=== PATIENT | female | born 1975 | race Caucasian/White ===

== ENCOUNTER 2017-11-06 17:36 | Emergency (ER) | payer MEDICAID ==
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
[2017-11-06] MEDS ORDERED: Acetaminophen/oxyCODONE 325-5 MG Tab PO ONE (18:10)
[2017-11-06] MEDS ORDERED: Ibuprofen 600 MG Tab PO ONE (18:11)
[2017-11-06] MEDS ORDERED: Ondansetron 4 MG/2 ML SDV IVPUSH ONE (18:15)
[2017-11-06] MEDS ORDERED: Ondansetron 4 MG Tab.DIS PO ONE (18:18)
--- NOTE | 2017-11-06 19:31 | CT ---
CT cervical spine Technique: Multiple axial sections were obtained from above C1 inferiorly to the top of T2. Reconstructed sagittal and coronal images were reviewed. Findings: Posterior skull base appears intact. Minimal disc space narrowing is noted at C4-C5 and C5-C6. Slight posterolateral spurring is noted at C4-C5 and C5-C6. Vertebral bodies and posterior arches are intact. No bony central or bony neural foraminal stenosis is seen. Minimal spurring is noted off the apophyseal joint on the left side at C2-C3. Slightly abnormal cervical curvature is seen most likely positional. Minimal spurring noted within the uncovertebral joints at C4-C5 and C5-C6. Impression: 1. Mild degenerative change. 2. No acute abnormality is identified on CT study of the cervical spine. Diagnostic code #2
--- NOTE | 2017-11-06 19:33 | CT ---
Head CT Technique: Multiple axial sections through the brain were obtained. Intravenous contrast was not utilized. Comparison: No previous intracranial imaging. Findings: Ventricles along with basal cisterns and sulci over convexities are within normal limits for the patient's age. No abnormal parenchymal densities are seen. No evidence of intracranial hemorrhage. No midline shift or mass effect is seen. Bone window settings were reviewed which shows the visualized sinuses to appear clear. No acute calvarial abnormality is seen. Impression: 1. No acute intracranial abnormality is seen. Diagnostic code #1
--- NOTE | 2017-11-06 19:34 | CT ---
CT thoracic spine Technique: Multiple axial sections were obtained through the thoracic spine. Reconstructed coronal and sagittal images were reviewed. Findings: Vertebral body heights and disc spaces are maintained. No bony central or bony neural foraminal stenosis is seen. No fracture is seen. No traumatic disc herniation is seen. Impression: 1. No abnormality is seen on CT study of the thoracic spine. Diagnostic code #1
--- NOTE | 2017-11-06 19:35 | CT ---
CT lumbar spine Technique: Multiple axial sections were obtained through the lumbar spine. Reconstructed sagittal and coronal images were reviewed. Findings: Vertebral bodies and posterior arches are intact. No fracture is seen. Posterior disks are preserved no traumatic disc herniation. No central canal stenosis or neural foraminal stenosis is seen. No abnormal subluxation is seen. Impression: 1. No abnormality is identified on CT study of the lumbar spine. Diagnostic code #1
== END 2017-11-06 20:04 | disposition home or self-care (01) ==
LOC: JD.ED 17:36
DX: S09.90XA Unspecified injury of head, initial encounter (principal); S13.9XXA Sprain of joints and ligaments of unspecified parts of neck, initial encounter; S30.0XXA Contusion of lower back and pelvis, initial encounter; S20.229A Contusion of unspecified back wall of thorax, initial encounter; F17.210 Nicotine dependence, cigarettes, uncomplicated; Z79.899 Other long term (current) drug therapy; W00.9XXA Unspecified fall due to ice and snow, initial encounter
CPT/HCPCS: 70450; 72125; 72128; 72131; 99284; A9270

== ENCOUNTER 2021-07-20 16:19 | Emergency (ER) | payer MEDICAID ==
[2021-07-20 17:10] VITALS: BP 132/94; PULSE 119
--- NOTE | 2021-07-20 17:48 | EDM.PDOC ---
ED HPI GENERAL MEDICAL PROBLEM - General Chief Complaint: Respiratory Problem Stated Complaint: COUGH Time Seen by Provider: 07/20/21 17:12 Source of Information: Reports: Patient, RN Notes Reviewed History Limitations: Reports: No Limitations - History of Present Illness INITIAL COMMENTS - FREE TEXT/NARRATIVE: Patient is a 46-year-old female presenting to the emergency department with complaints of cough which she reports has been present for the last few days. She does have a history of COPD for which she uses albuterol inhaler. She was seen at the [place] [facility] and started on Tessalon Perles, prednisone, and azithromycin. Denies having Covid test or chest x-ray completed. She did have Covid back in February but she is unvaccinated. Denies any fever, nausea, v omiting, diarrhea, or body aches. She is here primarily because the Tessalon Perles is not working for her cough and she would like a cough syrup. - Related Data Allergies Allergy/AdvReac Type Severity Reaction Status Date / Time No Known Allergies Allergy Verified 07/20/21 17:10 Home Meds: Home Meds Albuterol Sulfate [Proventil Hfa] 6.7 gm IH Q4H PRN 07/20/21 [History] Codeine/Promethazine [Phenergan with Codeine] 5 ml PO Q4HR PRN #100 ml 07/20/21 [Rx] Past Medical History Respiratory History: Reports: COPD Gastrointestinal History: Reports: Hepatitis Musculoskeletal History: Reports: Other (See Below) Other Musculoskeletal History: compound fracture right arm Neurological History: Reports: Migraines, Other (See Below) - Infectious Disease History Infectious Disease History: Reports: Hepatitis B, Hepatitis C - Past Surgical History GI Surgical History: Reports: Hernia Repair/Other Female Surgical History: Reports: Section, Tubal Ligation Social & Family History - Tobacco Use Tobacco Use Status *Q: Current Every Day Tobacco User Years of Tobacco use: 33 Packs/Tins Daily: 0.5 - Caffeine Use Caffeine Use: Reports: Soda - Recreational Drug Use Recreational Drug Use: No - Living Situation & Occupation Living situation: Reports: Single Occupation: Unemployed ED ROS GENERAL - Review of Systems Review Of Systems: Comprehensive ROS is negative, except as noted in HPI. ED EXAM, GENERAL - Physical Exam Exam: See Below Exam Limited By: No Limitations General Appearance: Alert, WD/WN, No Apparent Distress Respiratory/Chest: No Respiratory Distress, Lungs Clear, Normal Breath Sounds, No Accessory Muscle Use, Chest Non-Tender, Other (harsh cough with deep breathing) Cardiovascular: Normal Peripheral Pulses, Regular Rate, Rhythm, No Edema, No Gallop, No JVD, No Murmur, No Rub, Tachycardia GI/Abdominal: Normal Bowel Sounds, Soft, Non-Tender, No Organomegaly, No Distention, No Abnormal Bruit, No Mass Neurological: Alert, Oriented, CN II-XII Intact, Normal Cognition, Normal Gait, Normal Reflexes, No Motor/Sensory Deficits Psychiatric: Normal Affect, Normal Mood Skin Exam: Warm, Dry, Intact, Normal Color, No Rash Course - Vital Signs Last Recorded V/S: Last Vital Signs Temp 97.7 F 07/20/21 17:08 Pulse 119 H 07/20/21 17:08 Resp 18 07/20/21 17:08 BP 132/94 H 07/20/21 17:08 Pulse Ox 100 07/20/21 17:08 - Orders/Labs/Meds Labs: Laboratory Tests 07/20/21 Range/Units 17:18 SARS-CoV-2 RNA ([facility]) Negative (NEGATIVE) - Re-Assessments/Exams Free Text/Narrative Re-Assessment/Exam: Patient is a 46-year-old female presenting to the emergency department with complaints of cough. She has a history of COPD and has had treatment initiated for COPD exacerbation, however no chest x-ray or Covid testing was done. She reports that her Tessalon Perles is not helping her cough. She has been using 3 puffs of albuterol quite frequently. On arrival to ER, she is tachycardic at 119 and states that she feels jittery, likely as a result of her albuterol. Oxygen is 100% on room air. I have ordered chest x-ray and Covid test. 07/20/21 18:07 Chest x-ray shows no acute abnormalities. Patient would like to be called with her Covid test results. She is already taking prednisone, azithromycin, and albuterol. Reports Tessalon Perles not work. I will send prescription for Phenergan with codeine for cough. We will call her with her Covid results. Discharge instructions as documented. Departure - Departure Time of Disposition: 18:07 Disposition: Home, Self-Care 01 Condition: Good Clinical Impression: COPD exacerbation - Discharge Information *PRESCRIPTION DRUG MONITORING PROGRAM REVIEWED*: No *COPY OF PRESCRIPTION DRUG MONITORING REPORT IN PATIENT RADHA: No Prescriptions: Codeine/Promethazine [Phenergan with Codeine] 5 ml PO Q4HR PRN #100 ml PRN Reason: Cough Instructions: Chronic Obstructive Pulmonary Disease Exacerbation, [id number] Referrals: PCP,None [Primary Care Provider] - Forms: ED Department Discharge Additional Instructions: You were seen in the emergency department today for evaluation of cough. Chest x-ray was completed and found to be normal. Covid testing has been completed he will be notified of the results when they are available. Recommend that you continue your prednisone, azithromycin, and albuterol. Prescription has been sent for Phenergan with codeine for cough. Take this only as prescribed. Not work or drive for 12 hours after taking this as it can be sedating. We will notify you of your Covid results once they are available. You should experience any new or worsening symptoms, please do not hesitate to return to the emergency department for reevaluation. Sepsis Event Note (ED) - Evaluation Sepsis Screening Result: No Definite Risk - Focused Exam Vital Signs: Vital Signs Temp Pulse Resp BP Pulse Ox 07/20/21 17:08 97.7 F 119 H 18 132/94 H 100
--- NOTE | 2021-07-20 18:30 | CR ---
Chest: Portable view of the chest was obtained. Comparison: No prior chest imaging is available. Heart size and mediastinum are within normal limits. Lungs are clear with no acute parenchymal change. Bony structures show nothing acute. Impression: 1. Nothing acute is seen on portable chest x-ray. Diagnostic code #1
== END 2021-07-20 18:30 | disposition home or self-care (01) ==
LOC: JD.ED 16:19
DX: J44.1 Chronic obstructive pulmonary disease with (acute) exacerbation (principal); Z72.0 Tobacco use; Z20.822 Contact with and (suspected) exposure to COVID-19
CPT/HCPCS: 71045; 71045-26; 99283-25; U0002

== ENCOUNTER 2021-08-05 14:41 | Emergency (ER) | payer MEDICAID ==
[2021-08-05 15:19] VITALS: BP 132/75; PULSE 93
[2021-08-05 16:44] LABS: CORONAVIRUS COVID-19 NAA NEGATIVE (NEGATIVE)
--- NOTE | 2021-08-05 16:59 | CR ---
Chest: Portable view of the chest was obtained. Comparison: Prior chest x-ray of 07/20/21. Heart size and mediastinum are normal. Lungs show no acute parenchymal change. Bony structures are grossly intact. Impression: 1. Nothing acute is definitely appreciated on portable chest x-ray. Diagnostic code #1
--- NOTE | 2021-08-05 17:00 | EDM.PDOC ---
ED HPI GENERAL MEDICAL PROBLEM - General Chief Complaint: ENT Problem Stated Complaint: EAR THROAT HEAD PAIN COUGH Time Seen by Provider: 08/05/21 15:29 Source of Information: Reports: Patient History Limitations: Reports: No Limitations - History of Present Illness INITIAL COMMENTS - FREE TEXT/NARRATIVE: The patient presents with a cough, congestion, runny nose, sore throat, ear pain and fever. This has been going on for about 2 weeks. She was checked for COVID about a week ago and it was negative. It seemed like things were getting better but she started having symptoms again. She has a history of COPD. She does smoke. Onset: Gradual Duration: Week(s): (2) Location: Reports: Face Quality: Reports: Ache Severity: Moderate Improves with: Reports: None Worsens with: Reports: None Associated Symptoms: Reports: Cough, Fever/Chills - Related Data Allergies Allergy/AdvReac Type Severity Reaction Status Date / Time No Known Allergies Allergy Verified 08/05/21 15:19 Home Meds: Home Meds Azithromycin [Zithromax] 250 mg PO DAILY #6 tab 08/05/21 [Rx] Codeine/Promethazine [Phenergan with Codeine] 5 - 10 ml PO Q6HR PRN #300 ml 08/05/21 [Rx] Past Medical History Respiratory History: Reports: COPD Gastrointestinal History: Reports: Hepatitis Musculoskeletal History: Reports: Other (See Below) Other Musculoskeletal History: compound fracture right arm Neurological History: Reports: CVA, Migraines Psychiatric History: Reports: Anxiety, Depression - Infectious Disease History Infectious Disease History: Reports: Hepatitis B, Hepatitis C, Novel Coronavirus - Past Surgical History GI Surgical History: Reports: Hernia Repair/Other Female Surgical History: Reports: Section, Tubal Ligation Social & Family History - Family History Family Medical History: No Pertinent Family History - Tobacco Use Tobacco Use Status *Q: Current Every Day Tobacco User Years of Tobacco use: 33 Packs/Tins Daily: 0.2 - Caffeine Use Caffeine Use: Reports: None - Recreational Drug Use Recreational Drug Use: No - Living Situation & Occupation Living situation: Reports: Single Occupation: Unemployed ED ROS ENT - Review of Systems Review Of Systems: See Below Constitutional: Reports: Fever, Chills HEENT: Reports: Ear Pain Respiratory: Reports: Cough Cardiovascular: Reports: No Symptoms Endocrine: Reports: No Symptoms GI/Abdominal: Reports: No Symptoms : Reports: No Symptoms ED EXAM, ENT - Physical Exam Exam: See Below Exam Limited By: No Limitations General Appearance: Alert, No Apparent Distress Ears: Normal External Exam, Normal Canal, Normal TMs Nose: Normal Inspection Mouth/Throat: Normal Inspection Head: Atraumatic, Normocephalic Neck: Normal Inspection Respiratory/Chest: No Respiratory Distress, Lungs Clear, Normal Breath Sounds Cardiovascular: Regular Rate, Rhythm, No Edema, No Murmur GI/Abdominal: Soft, Non-Tender, No Organomegaly, No Mass Course - Vital Signs Last Recorded V/S: Last Vital Signs Temp 98.7 F 08/05/21 15:16 Pulse 93 08/05/21 15:16 Resp 16 08/05/21 15:16 BP 132/75 08/05/21 15:16 Pulse Ox 99 08/05/21 15:16 - Orders/Labs/Meds Labs: Laboratory Tests 08/05/21 Range/Units 15:25 Influenza Type A RNA Negative (NEGATIVE) Influenza Type B RNA Negative (NEGATIVE) SARS-CoV-2 RNA (KELLY) Negative (NEGATIVE) - Re-Assessments/Exams Free Text/Narrative Re-Assessment/Exam: 08/05/21 17:01 COVID 19 and influenza are all negative. Her CXR shows no infiltrates. I feel she has bronchitis. I will get her on some zithromax and something for her cough. Departure - Departure Time of Disposition: 17:05 Disposition: Home, Self-Care 01 Condition: Good Clinical Impression: Bronchitis - Discharge Information *PRESCRIPTION DRUG MONITORING PROGRAM REVIEWED*: Not Applicable *COPY OF PRESCRIPTION DRUG MONITORING REPORT IN PATIENT RADHA: Not Applicable Prescriptions: Codeine/Promethazine [Phenergan with Codeine] 5 - 10 ml PO Q6HR PRN #300 ml PRN Reason: Cough Azithromycin [Zithromax] 250 mg PO DAILY #6 tab Referrals: PCP,None [Primary Care Provider] - Forms: ED Department Discharge, ED Return to Work/School Form Additional Instructions: Drink plenty of fluids. Take the zithromax 2 pills on day 1 and 1 pill on day 2 through 5. Take tylenol or motrin for any fever or pain. Take the phenergan with codeine 5 to 10mls by mouth every 6 hours as needed for cough. Please return if you are worse. Sepsis Event Note (ED) - Focused Exam Vital Signs: Vital Signs Temp Pulse Resp BP Pulse Ox 08/05/21 15:16 98.7 F 93 16 132/75 99
== END 2021-08-05 15:40 | disposition home or self-care (01) ==
LOC: JD.ED 14:41
DX: J40 Bronchitis, not specified as acute or chronic (principal); F17.210 Nicotine dependence, cigarettes, uncomplicated; Z20.822 Contact with and (suspected) exposure to COVID-19
CPT/HCPCS: 0241U; 71045; 99283